=== PATIENT | male | born 1965 | race Caucasian/White ===

== ENCOUNTER 2018-05-11 15:12 | Outpatient (CLI) | payer BC ==
--- NOTE | 2018-05-11 16:41 | RAD ---
TWO VIEW CHEST: Comparison: 04-02-12 Indication: Pneumonia right lung. FINDINGS: There is elevation of the right hemidiaphragm. There is mild patchy left perihilar opacity inferiorly . No effusion or pneumothorax. Cardiac silhouette is accentuated by the elevated right hemidiaphragm. There is tortuosity and ectasia of the thoracic aorta. IMPRESSION: No focal consolidation. POS: [facility]
== END 2018-05-11 15:13 | disposition home or self-care (01) ==
LOC: RAD 15:12
PROVIDERS: ATTEND Physician Assistant
DX: J18.9 Pneumonia, unspecified organism (principal)
CPT/HCPCS: 71046

== ENCOUNTER 2018-05-16 10:12 | Outpatient (CLI) | payer BC ==
--- NOTE | 2018-05-16 15:43 | CT ---
CT THORAX WITH IV CONTRAST CT ABDOMEN AND PELVIS WITH IV CONTRAST: DATE: 05/16/2018. HISTORY: Elevated right hemidiaphragm and pneumonia right lung due to infectious organism. COMPARISON: Noncontrast CT abdomen and pelvis on 04/12/2012. FINDINGS: CT THORAX: There is mild atelectasis present at each lung base. The lungs are otherwise clear. No discrete pul monary nodule or mass is seen. There is mild elevation of the right hemidiaphragm which was also not ed on the prior exam in 2012. No consolidation is seen within the lungs bilaterally and there is no pulmonary nodule or mass visualized. No pleural effusion is present. There is no evidence of lymphadenopathy. Degenerative changes are seen in the spine. There is a tiny subcentimeter radiolucency seen within t he right aspect of the T4 vertebral body which is too small to characterize. No additional lucencies , lytic or sclerotic lesions are seen within the osseous structures. There are degenerative changes present in the thoracic spine. CT ABDOMEN AND PELVIS: Calcified granuloma seen at the lateral aspect right hepatic lobe. A linear low-density area is seen within the right hepatic lobe, but no mass or abnormal enhancement is seen in this region. The spleen, pancreas, bilateral adrenal glands, kidneys, and decompressed urinary bladder demonstrate a normal CT appearance. Vascular calcifications are seen in the abdominal aorta and involving the iliac arteries. There are postsurgical changes adjacent to the cecal apex probably related to prior appendectomy. A small amount of retained fecal material is seen throughout the colon. Loops of small bowel are nor mal in caliber. There is no free fluid, fluid collection, or lymphadenopathy seen in the abdomen or pelvis. Degenera tive changes are seen in the lumbar spine. The irregular fluid collection within the right lower jaspal drant noted on prior exam of 2011 is no longer seen. Prostate calcifications are present. IMPRESSION: 1. No acute findings are seen in the chest, abdomen, or pelvis. 2. Suture material at the cecal apex likely related to prior appendectomy. The previously noted irr egular fluid collection that in the right lower quadrant on the study in 2011 is not visualized on to day's exam. 3. Stable elevation of the right hemidiaphragm with associated mild volume loss. 4. Tiny subcentimeter rounded lucency within the T12 vertebral body of uncertain etiology but is too small to characterize. No additional lytic or sclerotic osseous lesions are seen throughout the oss eous structures. There are mild multilevel degenerative changes in the spine. POS: [facility]
[2018-05-16] MEDS ORDERED: ISOVUE-370 76%-LOCM 1 ML ONE (16:54)
== END 2018-05-16 10:13 | disposition home or self-care (01) ==
LOC: BICCT 10:12
PROVIDERS: ATTEND Physician Assistant
DX: J18.9 Pneumonia, unspecified organism (principal); Q79.1 Other congenital malformations of diaphragm; M47.816 Spondylosis without myelopathy or radiculopathy, lumbar region; R93.7 Abnormal findings on diagnostic imaging of other parts of musculoskeletal system; Z90.89 Acquired absence of other organs
CPT/HCPCS: 36415; 71260; 74177; 80053; 85025